=== PATIENT | female | born 1970 | race Caucasian/White ===

== ENCOUNTER 2022-09-29 19:26 | Emergency (ER) | payer MEDICAID ==
[~2022-09-29] VITALS: Ht 167.6 cm; Wt 82.0 kg
[2022-09-29 19:28] VITALS: O2SAT 99
[2022-09-29] MEDS ORDERED: METOCLOPRAMIDE HCL 10MG/2ML VIAL IV ONE (20:00)
[2022-09-29] MEDS ORDERED: SODIUM CHLORIDE 0.9% 1,000 ML IV ONE (20:00)
[2022-09-29] MEDS ORDERED: ACETAMINOPHEN 325MG TABLET PO ONE (20:00)
[2022-09-29] MEDS ORDERED: DIPHENHYDRAMINE 50MG/ML VIAL IV ONE (20:00)
[2022-09-29] MEDS ORDERED: LABETALOL 5MG/ML SYR 20 MG/4 ML SYRINGE IV ONE (20:30)
[2022-09-29] MEDS ORDERED: NICARDIPINE 40MG/200ML PREMIX 200 ML IV PRN (20:30)
[2022-09-29 20:43] LABS: BASOPHILS % 0.4 % (0.0-2.0); EOSINOPHILS % 0.6 % (0.0-5.0); HEMATOCRIT. 37.1 % (36.0-48.0); HEMOGLOBIN. 12.2 g/dL (12.0-16.0); LYMPHOCYTES % 27.1 % (20.0-50.0); MEAN CORPUSCULAR HEMOGLOBIN 29.9 pg (28.0-32.0); MEAN CORPUSCULAR VOLUME 91.5 fL (81.0-99.0); MEAN PLATELET VOLUME 7.9 fl (7.4-10.4); MONOCYTES % 5.9 % (2.0-8.0); PLATELET 256 x1000/uL (130-400); RED BLOOD CELL COUNT 4.06 mill/uL (4.2-5.4); RED CELL DISTRIBUTION WIDTH 14.3 % (11.6-14.6)
[2022-09-29 20:45] LABS: CHLORIDE 109 mEq/L (98-107)
[2022-09-29 20:46] LABS: HCG SCREEN NEGATIVE
[2022-09-29] MEDS ORDERED: LEVETIRACETAM 1000MG PREMIX 100 ML IV ONE (21:00)
[2022-09-29] MEDS ORDERED: MORPHINE SULFATE 4 MG/ML CPJ (NOT FOR IM USE) IV ONE (21:30)
[2022-09-29 21:41] VITALS: BP 136/74; PULSE 83; RESP 22; TEMP 97.8
[2022-09-30] MEDS ORDERED: NIMODIPINE 30MG CAPSULE PO SCH
== END 2022-09-29 21:52 | disposition short-term general hospital (02) ==
LOC: ER 19:55
DX: I60.9 Nontraumatic subarachnoid hemorrhage, unspecified (principal); I10 Essential (primary) hypertension
CPT/HCPCS: 80053; 84703; 85025; 36415; 70450; 96361; 96365; 96375; 99291; Z7610 ×3; J1953; J1200; J3490; J2765; J2270; J7030

== ENCOUNTER 2023-10-12 12:38 | Emergency (ER) | payer MEDICAID ==
[~2023-10-12] VITALS: Ht 160 cm; Wt 66.0 kg
[2023-10-12 13:03] VITALS: O2SAT 100
[2023-10-12 13:41] VITALS: BP 128/84; PULSE 77; RESP 18; TEMP 98.2
== END 2023-10-12 13:54 | disposition home or self-care (01) ==
LOC: ER 12:38
DX: R04.0 Epistaxis (principal); I10 Essential (primary) hypertension
CPT/HCPCS: 30901; 99284